=== PATIENT | female | born 1985 | race Caucasian/White ===

== ENCOUNTER 2018-08-26 15:33 | Outpatient (CLI) | payer MEDICAID | END 2018-08-26 19:40 | disposition home or self-care (01) | LOC: OBT 15:33 → L-D 15:33 → OBT 17:15 → L-D 17:15 → OBT 19:40 | DX: O41.8X30 Other specified disorders of amniotic fluid and membranes, third trimester, not applicable or unspecified (principal); O24.419 Gestational diabetes mellitus in pregnancy, unspecified control; Z3A.36 36 weeks gestation of pregnancy | CPT/HCPCS: 76818; 82962 ==

== ENCOUNTER 2018-09-16 12:01 | Inpatient (IN) | payer MEDICAID ==
[2018-09-16] MEDS ORDERED: AMPICILLIN 2 GM/NS (PMX) 100 ML IV (12:30)
[2018-09-16] MEDS ORDERED: METHYLERGONOVINE 0.2 MG INJ IM ×3 (12:30→16:00)
[2018-09-16] MEDS ORDERED: IBUPROFEN 600 MG TAB PO ×2 (12:30→18:00)
[2018-09-16] MEDS ORDERED: CARBOPROST 250 MCG INJ IM ×3 (12:30→16:00)
[2018-09-16] MEDS ORDERED: OXYTOCIN 30 UNITS/LR 500 ML IV ×4 (12:30→16:00)
[2018-09-16] MEDS ORDERED: LIDOCAINE 1% (MPF) 30 ML INJ INJ (12:30)
[2018-09-16] MEDS ORDERED: BUTORPHANOL 2 MG INJ IV ×2 (12:30)
[2018-09-16] MEDS ORDERED: MISOPROSTOL 200 MCG TAB PR ×3 (12:30→16:00)
[2018-09-16 12:47] LABS: ADD MAN DIFF? NO
[2018-09-16] MEDS: LACTATED RINGER'S 1,000 ML IV (12:49)
[2018-09-16 12:51] LABS: WHITE BLOOD COUNT 11.1 10^3/ul (4.8-10.8)
[2018-09-16 12:51] LABS: BASOPHILS % 0.4 % (0.0-2.0); EOSINOPHILS # 0.2 10^3/ul (0.0-0.5); EOSINOPHILS % 1.4 % (0.0-7.0); HEMOGLOBIN 11.7 g/dl (12.0-16.0); LYMPHOCYTES # 3.1 10^3/ul (0.8-2.9); LYMPHOCYTES % 27.5 % (15.0-51.0); MEAN CORPUSCULAR HEMOGLOBIN 26.1 pg (29.0-33.0); MEAN CORPUSCULAR HGB CONC 31.6 g/dl (32.0-37.0); MEAN CORPUSCULAR VOLUME 82.6 fl (82.0-101.0); MEAN PLATELET VOLUME 12.5 fl (7.4-10.4); MONOCYTE # 0.5 10^3/ul (0.3-0.9); MONOCYTES % 4.1 % (0.0-11.0); NEUTROPHIL # 7.4 10^3/ul (1.6-7.5); NEUTROPHILS % 66.2 % (39.0-77.0); PLATELET COUNT 211 10^3/UL (140-415); RED BLOOD COUNT 4.48 10^6/ul (4.20-5.40); RED CELL DISTRIBUTION WIDTH 17.2 % (11.5-14.5)
[2018-09-16] MEDS ORDERED: FENTAnyl 2MCG/ML-ROPIV 0.2% 0 ML (13:07)
[2018-09-16 13:13] LABS: INR 0.95; PROTIME 12.8 Sec (11.9-14.9)
[2018-09-16 13:14] LABS: PARTIAL THROMBOPLASTIN TIME 25.1 Sec (23.0-35.0)
[2018-09-16 13:25] LABS: RUPTURE FETAL MEMBRANES POSITIVE (NEGATIVE)
[2018-09-16] MEDS ORDERED: FENTAnyl 2MCG/ML-ROPIV 0.2% 100 ML BAG EPI (13:30)
[2018-09-16] MEDS: OXYTOCIN 30 UNITS/LR 500 ML IV ×3 (13:30→17:26)
[2018-09-16] MEDS ORDERED: DIPHENHYDRAMINE 50 MG INJ IV (13:30)
[2018-09-16] MEDS ORDERED: ONDANSETRON 4 MG INJ IV (13:30)
[2018-09-16] MEDS ORDERED: NALOXONE (0.4 MG/ML) INJ IV (13:30)
[2018-09-16 13:41] LABS: HEPATITIS B SURFACE ANTIGEN NEGATIVE (NEGATIVE)
[2018-09-16] MEDS ORDERED: SENNA/DOCUSATE NA (8.6MG/50MG) TAB PO ×3 (16:00→21:00)
[2018-09-16] MEDS ORDERED: BENZOCAINE 20% 56 ML SPRAY TOP (16:00)
[2018-09-16] MEDS ORDERED: ZOLPIDEM 5 MG TAB PO (16:00)
[2018-09-16] MEDS ORDERED: WITCH HAZEL/GLYCERIN PAD PR (16:00)
[2018-09-16] MEDS ORDERED: NACL 0.9% 3 ML SYG IV ×2 (16:00)
[2018-09-16] MEDS ORDERED: OXYCODONE/ASPIRIN (4.88/325) TAB PO ×2 (16:00)
[2018-09-16] MEDS ORDERED: AMPICILLIN 1 GM/NS (PMX) 50 ML IV (16:30)
[2018-09-16] MEDS: IBUPROFEN 600 MG TAB PO (17:25)
[2018-09-16] MEDS: LANOLIN HPA 1 PKT TOP (17:25)
[2018-09-16 20:43] LABS: RAPID PLASMA REAGIN NONREACTIVE (NR)
[2018-09-16] MEDS: SENNA/DOCUSATE NA (8.6MG/50MG) TAB PO (21:49)
[2018-09-17] MEDS: IBUPROFEN 600 MG TAB PO ×5 (00:47→23:56)
[2018-09-17 08:36] LABS: ADD MAN DIFF? NO
[2018-09-17 08:43] LABS: WHITE BLOOD COUNT 11.9 10^3/ul (4.8-10.8)
[2018-09-17 08:43] LABS: BASOPHILS % 0.3 % (0.0-2.0); EOSINOPHILS # 0.2 10^3/ul (0.0-0.5); EOSINOPHILS % 1.9 % (0.0-7.0); HEMATOCRIT 32.8 % (37.0-47.0); HEMOGLOBIN 10.8 g/dl (12.0-16.0); LYMPHOCYTES # 3.2 10^3/ul (0.8-2.9); LYMPHOCYTES % 26.9 % (15.0-51.0); MEAN CORPUSCULAR HEMOGLOBIN 27.5 pg (29.0-33.0); MEAN CORPUSCULAR HGB CONC 32.9 g/dl (32.0-37.0); MEAN CORPUSCULAR VOLUME 83.5 fl (82.0-101.0); MEAN PLATELET VOLUME 12.6 fl (7.4-10.4); MONOCYTE # 0.5 10^3/ul (0.3-0.9); MONOCYTES % 4.3 % (0.0-11.0); NEUTROPHIL # 7.9 10^3/ul (1.6-7.5); NEUTROPHILS % 66.2 % (39.0-77.0); PLATELET COUNT 207 10^3/UL (140-415); RED BLOOD COUNT 3.93 10^6/ul (4.20-5.40); RED CELL DISTRIBUTION WIDTH 17.5 % (11.5-14.5)
[2018-09-17] MEDS: SENNA/DOCUSATE NA (8.6MG/50MG) TAB PO ×2 (09:42→21:45)
[2018-09-18] MEDS: IBUPROFEN 600 MG TAB PO ×2 (05:45→12:32)
[2018-09-18] MEDS: SENNA/DOCUSATE NA (8.6MG/50MG) TAB PO (09:00)
[2018-09-18] MEDS: DIPHTH/TET/ACEL PERTUSS (ADULT) 0.5 ML VIAL IM* (09:00)
== END 2018-09-18 15:10 | disposition home or self-care (01) | DRG 807 ==
LOC: OBT 12:01 → L-D 12:01 → OBT 12:20 → L-D 12:20 → PP1 15:22
PROVIDERS: Obstetrics & Gynecology
PROC: 10E0XZZ Delivery of Products of Conception, External Approach (ICD-10-PCS; principal; 2018-09-16)
DX: O80 Encounter for full-term uncomplicated delivery (principal); Z37.0 Single live birth; Z3A.39 39 weeks gestation of pregnancy
CPT/HCPCS: 62322; 84112; 85025; 85610; 85730; 86592; 86850; 86900; 86901; 87340

== ENCOUNTER 2019-02-01 19:24 | Emergency (ER) | payer MEDICAID | END 2019-02-01 21:15 | disposition home or self-care (01) | LOC: FTE 19:24 | DX: H60.503 Unspecified acute noninfective otitis externa, bilateral (principal) | CPT/HCPCS: 99283; Z7502 ==